=== PATIENT | female | born 1975 | race Two or more races ===

== ENCOUNTER 2024-03-24 18:25 | Emergency (ER) | payer BC, OTHER ==
[~2024-03-24] VITALS: Ht 165.1 cm; Wt 75.0 kg
[2024-03-24 19:46] LABS: Basophils # (auto) 0.1 10 ^3/uL (0-0.2); Eosinophils # (auto) 0.1 10 ^3/uL (0-0.8); Eosinophils % (auto) 0.8 % (0.0-7.0); Hematocrit 31.5 % (36.0-46.0); Hemoglobin 9.7 g/dL (12.2-16.2); Lymphocytes # (auto) 1.4 10 ^3/uL (0.4-5.4); Lymphocytes % (auto) 14.7 % (10.0-50.0); Mean Corpuscular Hemoglobin 23.4 pg (28.0-32.0); Mean Corpuscular Hgb Conc. 30.8 g/dL (32.0-36.0); Mean Corpuscular Volume 76.1 fL (80.0-100.0); Monocytes # (auto) 0.5 10 ^3/uL (0-1.3); Monocytes % (auto) 4.8 % (0.0-12.0); Neutrophils # (auto) 7.6 10 ^3/uL (1.6-8.6); Neutrophils % (auto) 78.7 % (37.0-80.0); Platelet Count (auto) 139 10^3/uL (140-450); Red Blood Cells 4.14 10^6/uL (4.0-5.20); Red Cell Distribution Width 19.3 % (11.8-14.3); White Blood Cell 9.7 10^3/uL (4.4-10.8)
[2024-03-24 19:55] LABS: Chloride 108 mmol/L (98-107); Potassium 3.9 mmol/L (3.5-5.1); Sodium 137 mmol/L (136-145)
[2024-03-24 19:56] LABS: Anion Gap 4 (5-15); Carbon Dioxide 25 mmol/L (20-30)
[2024-03-24 19:57] LABS: Calcium 9.5 mg/dL (8.7-10.4)
[2024-03-24 20:01] LABS: BUN/Creatinine Ratio 15.7 (10.0-20.0); Blood Urea Nitrogen 19 mg/dL (9-23); Glucose 114 mg/dL (74-106)
[2024-03-24 20:08] LABS: Urine Bacteria FEW /hpf (None Seen); Urine Blood Negative /uL (Negative); Urine Clarity Turbid (Clear); Urine Color Yellow (Yellow); Urine Hyaline Cast MANY /lpf (0 - 2); Urine Mucus FEW (None Seen); Urine Protein, UAD 1+ (Negative); Urine Specific Gravity 1.034 (1.001-1.035); Urine Urobilinogen Normal (Negative); Urine WBC 7 /hpf (0 - 5)
[2024-03-24 21:41] VITALS: BP 109/68; PULSE 67; RESP 18; TEMP 98; O2SAT 99
== END 2024-03-24 21:42 | disposition home or self-care (01) ==
LOC: ER 18:25
DX: R55 Syncope and collapse (principal); R42 Dizziness and giddiness
CPT/HCPCS: 36415; 71046; 80048; 81001; 81025; 84484; 85025; 93005